=== PATIENT | male | born 1970 | race American Indian/Alaskan Native ===

== ENCOUNTER 2017-03-14 08:03 | Emergency (ER) | payer BC ==
[2017-03-14 08:08] VITALS: BP 132/82; PULSE 85; TEMP 97; O2SAT 100; BMI 32.4
--- NOTE | 2017-03-14 08:59 | ED PDOC ---
HPI: Eye Injury/Pain Time Seen by Provider: 03/14/17 08:10 Chief Complaint (Nursing): Eye Problem Chief Complaint (Provider): eyelid pain History Per: Patient History/Exam Limitations: no limitations Additional Complaint(s): 46yo male comes to the ED with left eyelid pain for 3 days. States at onset he bought lubricant eye ointment from [facility] which he has been using but this has not helped. Denies getting foreign object in the eye. Denies changes in vision, eye discharge, trauma or any other complaints. Past Medical History Vital Signs: Last Vital Signs Temp 97 F L 03/14/17 08:07 Pulse 85 03/14/17 08:07 Resp BP 132/82 03/14/17 08:07 Pulse Ox 100 03/14/17 08:07 - Medical History PMH: Diabetes, HTN, Hypercholesterolemia, Hyperlipidemia - Family History Family History: States: Diabetes - Home Medications Home Medications: Ambulatory Orders Medication Instructions Recorded Naproxen [Naprosyn] 500 mg PO BID PRN #15 tablet 08/24/16 Sulfamethoxazole/Trimethoprim 1 tab PO BID #14 tab 08/24/16 [Bactrim DS 800 mg-160 mg] - Allergies Allergies/Adverse Reactions: Allergies Allergy/AdvReac Type Severity Reaction Status Date / Time Penicillins Allergy RASH Verified 03/14/17 08:20 Review of Systems Eyes: Positive for: Eyelid Inflammation, Other (eyelid pain). Negative for: Pain, Vision Change Physical Exam - Reviewed Nursing Documentation Reviewed: Yes Vital Signs Reviewed: Yes - Physical Exam Appears: Positive for: Well, Non-toxic, No Acute Distress Head Exam: Positive for: ATRAUMATIC, NORMAL INSPECTION, NORMOCEPHALIC Skin: Positive for: Warm, Dry Eye Exam: Positive for: Other (hordeolum of the left lower eyelid) - ECG O2 Sat by Pulse Oximetry: 100 Medical Decision Making Medical Decision Makin explained to the patient that he has an infection of the eyelid, not an infection in the eye itself. instructed need for warm compresses and he needs to follow up with an specialty molder as an outpatient. Disposition - Clinical Impression Clinical Impression: Hordeolum - Patient ED Disposition Is Patient to be Admitted: No Counseled Patient/Family Regarding: Studies Performed, Diagnosis, Need For Followup - Disposition Referrals: Judson Blas MD [Staff Provider] - Disposition: Routine/Home Disposition Time: 10:00 Condition: IMPROVED Additional Instructions: follow up with opthalmologist in 1-2 days return to the ED with any worsening or concerning symptoms. use warm compresses multiple times a day for relief. Instructions: Tha (ED) Additional Comments - Additional Comments Additional Comments: Scribe Attestation: Documented by Yvan Multani acting as a scribe for Graciela Nagel MD. Provider Scribe Attestation: All medical record entries made by the Scribe were at my direction and personally dictated by me. I have reviewed the chart and agree that the record accurately reflects my personal performance of the history, physical exam, medical decision making, and the department course for this patient. I have also personally directed, reviewed, and agree with the discharge instructions and disposition.
== END 2017-03-14 09:33 | disposition home or self-care (01) ==
LOC: H.ER 08:03
DX: H00.014 Hordeolum externum left upper eyelid (principal); E11.9 Type 2 diabetes mellitus without complications; E78.00 Pure hypercholesterolemia, unspecified; I10 Essential (primary) hypertension; Z88.0 Allergy status to penicillin

== ENCOUNTER 2018-12-26 20:03 | Emergency (ER) | payer BC ==
[2018-12-26 20:03] VITALS: BMI 32.4
[2018-12-26 20:25] VITALS: BP 152/82; PULSE 89; RESP 16; TEMP 98.2; O2SAT 97
--- NOTE | 2018-12-26 21:04 | ED PDOC ---
Upper Extremity Pain/Injury Time Seen by Provider: 12/26/18 20:27 Chief Complaint (Nursing): Upper Extremity Problem/Injury Chief Complaint (Provider): Shoulder/Neck Pain History Per: Patient History/Exam Limitations: no limitations Onset/Duration Of Symptoms: Days (2x) Current Symptoms Are (Timing): Still Present Additional Complaint(s): 48 year old male with a past medical history of type 2 diabetes, hypertension, and hypercholesterolemia presents to the ED for an evaluation of left sided neck pain which radiates to his left shoulder ongoing for 2x days. 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 Patient states that his symptoms worsen when he tries to lift his left arm or move it. Patient denies any falls or trauma to the affected area. Patient states that he did have left rotator cuff surgery 15x years ago. Patient reports taking nabumetone 750 mg, which he was prescribed by an orthopedic surgeon previously, 2x hours prior to arrival with mild relief. No other complaints; denies loss of sensation. PMD: [facility] Past Medical History Reviewed: Historical Data, Nursing Documentation, Vital Signs Vital Signs: Last Vital Signs Temp 98.2 F 12/26/18 20:20 Pulse 89 12/26/18 20:20 Resp 16 12/26/18 20:20 BP 152/82 H 12/26/18 20:20 Pulse Ox 97 12/26/18 20:20 MOHIT Report Viewed: Yes - Medical History PMH: Diabetes (type 2), HTN, Hypercholesterolemia, Hyperlipidemia - Surgical History Surgical History: Hernia Repair Other surgeries: left rotator cuff surgery in 2003 - Family History Family History: States: Diabetes - Social History Current smoker - smoking cessation education provided: No Alcohol: None Drugs: Denies - Home Medications Home Medications: Ambulatory Orders Medication Instructions Recorded Naproxen [Naprosyn] 500 mg PO BID PRN #15 tablet 08/24/16 Sulfamethoxazole/Trimethoprim 1 tab PO BID #14 tab 08/24/16 [Bactrim DS 800 mg-160 mg] Acetaminophen [Acetaminophen 8 650 mg PO Q8 PRN #21 tablet.er 12/26/18 Hour] Cyclobenzaprine [Cyclobenzaprine 10 mg PO Q8 PRN #12 tab 12/26/18 HCl] Lidocaine 5% [Lidoderm] 1 ea TOP Q12 PRN #10 patch 12/26/18 Ketorolac Tromethamine [Toradol] 10 mg PO BID #20 tab 12/27/18 - Allergies Allergies/Adverse Reactions: Allergies Allergy/AdvReac Type Severity Reaction Status Date / Time Penicillins Allergy RASH Verified 12/26/18 20:20 Review of Systems ROS Statement: Except As Marked, All Systems Reviewed And Found Negative Musculoskeletal: Positive for: Neck Pain (left sided), Shoulder Pain (left) Physical Exam - Reviewed Nursing Documentation Reviewed: Yes Vital Signs Reviewed: Yes - Physical Exam Comments: GENERAL APPEARANCE: Patient is awake, alert, oriented x3, resting comfortably in no acute distress. SKIN: Warm, dry; (-) cyanosis. EYES: (-) conjunctival injection ENMT: Mucous membranes moist. Airway patent, (-) stridor. NECK: Supple, FROM (+) left paracervical tenderness, (+) left trapezius tenderness with spasm (-) rigidity (-) lymphadenopathy. CHEST AND RESPIRATORY: (-) rales, (-) rhonchi, (-) wheezes; breath sounds equal bilaterally. Respirations even and nonlabored. HEART AND CARDIOVASCULAR: (-) irregularity BACK: (-) midline tenderness (-) deformity. EXTREMITIES: FROM throughout (-) deformity. Distal pulses good bilaterally. NEURO AND PSYCH: Mental status as above. Gait: steady. Speech: clear. (-) facial asymmetry. Sensation intact throughout. Inventory Control Planner strength equal. - ECG O2 Sat by Pulse Oximetry: 97 (RA) Pulse Ox Interpretation: Normal Medical Decision Making Medical Decision Makin:30 Clinical impression: 48 year old male with acute shoulder and neck pain; muscle spasm. Initial plan: * flexeril 10 mg PO ( not driving home) * tylenol 650 mg PO * reevaluation 2144 On re-evaluation, patient reports improvement of symptoms however requesting Lidocaine patch. Lidoderm patch ordered. On exam, patient remains AAOx3, in no acute distress. Vitals stable. ROM exercises and use of heat therapy encouraged. Lab/Diagnostic results d/w the patient in great detail. Diagnosis of acute shoulder and neck pain, muscle spasm d/w the patient. Based on history, exam and diagnostic results, plan will be for outpatient follow up with PMD/ortho. Patient instructed to follow-up with pmd / referral provided / the clinic in 1- 2 days without fail. Advised to take medication as prescribed. Return to the emergency room at any time for any new or worsening symptoms. Patient states he fully agrees with and understands discharge instructions. States that he agrees with the plan and disposition. Verbalized and repeated discharge instructions and plan. I have given the patient opportunity to ask any additional questions. ScribeAttestation: Documented byDanielle Blandon, acting as a scribe for Danielle Richard Provider ScribeAttestation: All medical record entries made by the Scribe were at my direction and personally dictated by me. I have reviewed the chart and agree that the record accurately reflects my personal performance of the history, physical exam, medical decision making, and the department course for this patient. I have also personally directed, reviewed, and agree with the discharge instructions and disposition. Disposition - Clinical Impression Clinical Impression: Acute neck pain, Acute shoulder pain, Muscle spasm of shoulder region - Patient ED Disposition Is Patient to be Admitted: No Counseled Patient/Family Regarding: Studies Performed, Diagnosis, Need For Followup, Rx Given - Disposition Referrals: primary, doctor [Other] Cheri Lion MD [Staff Provider] - [facility] [Outside] Disposition: Routine/Home Disposition Time: 21:45 Condition: STABLE Additional Instructions: CONTINUE PRESVIOUSLY PRESCRIBED NSAIDS IN ADDITION TO TODAY'S PRESCRIBED MEDICATION. The emergency medical care you received today was directed at your acute symptoms. If you were prescribed any medication, please fill it and take as directed. It may take several days for your symptoms to resolve. Return to the Emergency Department if your symptoms worsen, do not improve, or if you have any other problems. Please contact your doctor in 2 days for re-evaluation and follow up / or call one of the physicians/clinics you have been referred to that are listed on the Patient Visit Information form that is included in your discharge packet. Bring any paperwork you were given at discharge with you along with any medications you are taking to your follow up visit. Our treatment cannot replace ongoing medical care by a primary care provider (PCP) outside of the emergency department. Prescriptions: Acetaminophen [Acetaminophen 8 Hour] 650 mg PO Q8 PRN #21 tablet.er PRN Reason: Pain, Moderate (4-7) Cyclobenzaprine [Cyclobenzaprine HCl] 10 mg PO Q8 PRN #12 tab PRN Reason: Muscle Spasm Lidocaine 5% [Lidoderm] 1 ea TOP Q12 PRN #10 patch PRN Reason: Pain, Moderate (4-7) Instructions: Muscle Spasms (DC), Generalized Neck Pain (DC), Shoulder Pain (DC) Forms: [facility] (K[place]i) Print Language: MOROCCAN - POA Present On Arrival: None
[2018-12-26] MEDS ORDERED: Lidocaine 5% Patch TD STA (21:30)
== END 2018-12-26 22:38 | disposition home or self-care (01) ==
LOC: H.ER 20:03
DX: M54.2 Cervicalgia (principal); M62.838 Other muscle spasm; E11.9 Type 2 diabetes mellitus without complications; I10 Essential (primary) hypertension; Z88.0 Allergy status to penicillin

== ENCOUNTER 2018-12-27 04:44 | Emergency (ER) | payer BC ==
[2018-12-27 04:44] VITALS: BMI 32.4
[2018-12-27 05:12] VITALS: TEMP 97.5; O2SAT 98
--- NOTE | 2018-12-27 07:26 | ED PDOC ---
HPI: General Adult Time Seen by Provider: 12/27/18 05:32 Chief Complaint (Nursing): Back Pain Chief Complaint (Provider): Shoulder Pain History Per: Patient History/Exam Limitations: no limitations Onset/Duration Of Symptoms: Days Current Symptoms Are (Timing): Still Present Additional Complaint(s): 48 year old male with a past medical history of hypertension, hyperch olesterolemia, and diabetes who is returning to the ED for left shoulder pain. Patient states that he was in the ED yesterday for the same pain that starts in left side of neck and radiates down arm. He reports difficulty raising arm above his head and denies any history of trauma. Of note, patient states that he has not taken any anti-inflammatory drugs and denies any chest pain or shortness of breath. PMD: [facility] Past Medical History Reviewed: Historical Data, Nursing Documentation, Vital Signs Vital Signs: Last Vital Signs Temp 97.5 F L 12/27/18 05:09 Pulse 110 H 12/27/18 05:09 Resp 16 12/27/18 05:09 BP 130/87 12/27/18 05:09 Pulse Ox 98 12/27/18 05:09 - Medical History PMH: Diabetes (type 2), HTN, Hypercholesterolemia, Hyperlipidemia - Surgical History Surgical History: Hernia Repair - Family History Family History: States: Diabetes - Social History Current smoker - smoking cessation education provided: No Alcohol: None Drugs: Denies - Home Medications Home Medications: Ambulatory Orders Medication Instructions Recorded Naproxen [Naprosyn] 500 mg PO BID PRN #15 tablet 08/24/16 Sulfamethoxazole/Trimethoprim 1 tab PO BID #14 tab 08/24/16 [Bactrim DS 800 mg-160 mg] Acetaminophen [Acetaminophen 8 650 mg PO Q8 PRN #21 tablet.er 12/26/18 Hour] Cyclobenzaprine [Cyclobenzaprine 10 mg PO Q8 PRN #12 tab 12/26/18 HCl] Lidocaine 5% [Lidoderm] 1 ea TOP Q12 PRN #10 patch 12/26/18 Ketorolac Tromethamine [Toradol] 10 mg PO BID #20 tab 12/27/18 - Allergies Allergies/Adverse Reactions: Allergies Allergy/AdvReac Type Severity Reaction Status Date / Time Penicillins Allergy RASH Verified 12/26/18 20:20 Review of Systems ROS Statement: Except As Marked, All Systems Reviewed And Found Negative Cardiovascular: Negative for: Chest Pain Respiratory: Negative for: Shortness of Breath Musculoskeletal: Positive for: Neck Pain, Shoulder Pain, Arm Pain Physical Exam - Reviewed Nursing Documentation Reviewed: Yes Vital Signs Reviewed: Yes - Physical Exam Appears: Positive for: Non-toxic, No Acute Distress Head Exam: Positive for: ATRAUMATIC, NORMAL INSPECTION, NORMOCEPHALIC Skin: Positive for: Normal Color, Warm, DRY Eye Exam: Positive for: Normal appearance Neck: Positive for: Normal, Painless ROM, Supple Cardiovascular/Chest: Positive for: Regular Rate, Rhythm. Negative for: Murmur Respiratory: Positive for: Normal Breath Sounds. Negative for: Respiratory Distress Gastrointestinal/Abdominal: Positive for: Normal Exam, Soft. Negative for: Tenderness Back: Positive for: Normal Inspection. Negative for: L CVA Tenderness, R CVA Tenderness, Vertebral Tenderness Extremity: Positive for: Other (Tenderness to palpation of trapezius and deltoid with near full ROM of left shoulder ). Negative for: Pedal Edema, Deformity, Swelling Neurological/Psych: Positive for: Awake, Alert, Normal Tone, Oriented. Negative for: Motor/Sensory Deficits - ECG O2 Sat by Pulse Oximetry: 98 (RA) Pulse Ox Interpretation: Normal Medical Decision Making Medical Decision Making: Time: 5:51 Assessment: Muscle spasm Plan: --EKG and Chest x-ray show no acute pathology -- No concern for cardiac pathology or dissection of aorta or carotid --After Toradol patient is feeling better --He states that he has an appointment with his orthopedic surgeon tomorrow --Very well appearing upon discharge Scribe Attestation: Documented by Joyce Garcia, acting as a scribe for Cleveland Grossman MD. Provider Scribe Attestation: All medical record entries made by the Scribe were at my direction and personally dictated by me. I have reviewed the chart and agree that the record accurately reflects my personal performance of the history, physical exam, medical decision making, and the department course for this patient. I have also personally directed, reviewed, and agree with the discharge instructions and disposition. Disposition - Clinical Impression Clinical Impression: Muscle spasm of shoulder region - Patient ED Disposition Is Patient to be Admitted: No Counseled Patient/Family Regarding: Studies Performed, Diagnosis, Need For Followup, Rx Given - Disposition Disposition: Routine/Home Disposition Time: 07:00 Condition: IMPROVED Prescriptions: Ketorolac Tromethamine [Toradol] 10 mg PO BID #20 tab Instructions: Muscle Spasms (DC) Forms: [email or web address] [facility] ([place]an)
[2018-12-27 07:53] VITALS: BP 128/86; PULSE 90; RESP 18
[2018-12-27 07:53] LABS: URINE BILIRUBIN NEGATIVE (NEGATIVE); URINE BLOOD NEGATIVE (NEGATIVE); URINE CLARITY CLEAR (Clear); URINE COLOR YELLOW (YELLOW); URINE GLUCOSE (UA) >=500 mg/dL (NEGATIVE); URINE LEUKOCYTE ESTERASE NEG Leu/uL (Negative); URINE PROTEIN NEGATIVE (NEGATIVE); URINE UROBILINOGEN 0.2-1.0 mg/dL (0.2-1.0)
--- NOTE | 2018-12-27 15:46 | RAD ---
Date of service: 12/27/2018 PROCEDURE: Radiographs of the Left Shoulder HISTORY: Shoulder pain COMPARISON: No prior study available for comparison FINDINGS: BONES: No evidence of acute displaced fracture nor dislocation. Two metallic threaded fixation tacks are seen overlying the left humeral head consistent with prior rotator cuff injury repair. There is widening of the left acromioclavicular joint with secondary degenerative osteoarthritis as well. JOINTS: Mild degenerative osteoarthritis left acromioclavicular and to a lesser degree glenohumeral joints. SOFT TISSUES: Normal. OTHER FINDINGS: None. IMPRESSION: No evidence of acute displaced fracture nor dislocation. Postoperative changes left shoulder. Widening left AC joint. Mild degenerative osteoarthritis.
--- NOTE | 2018-12-27 15:47 | RAD ---
Date of service: 12/27/2018 HISTORY: Shoulder pain COMPARISON: Comparison made with chest radiograph dated 07/06/2014 FINDINGS: LUNGS: Minor bibasilar atelectasis and or scarring. There appears to be some minor left apical pleural thickening as well. PLEURA: No significant pleural effusion identified, no pneumothorax apparent. CARDIOVASCULAR: No aortic atherosclerotic calcification present. Normal cardiac size. No pulmonary vascular congestion. OSSEOUS STRUCTURES: No significant abnormalities. VISUALIZED UPPER ABDOMEN: Normal. OTHER FINDINGS: None. IMPRESSION: Minor bibasilar atelectasis and or scarring.
== END 2018-12-27 07:45 | disposition home or self-care (01) ==
LOC: H.ER 04:44
DX: M62.838 Other muscle spasm (principal); E11.9 Type 2 diabetes mellitus without complications; E78.00 Pure hypercholesterolemia, unspecified; I10 Essential (primary) hypertension; Z88.0 Allergy status to penicillin
CPT/HCPCS: 71045; 73030; 81003; 82948; 96372; 99284; J1885

== ENCOUNTER 2019-01-08 14:14 | Emergency (ER) | payer BC ==
[2019-01-08 14:14] VITALS: BMI 32.4
[2019-01-08 14:44] VITALS: RESP 20
--- NOTE | 2019-01-08 16:30 | ED PDOC ---
Upper Extremity Pain/Injury Time Seen by Provider: 01/08/19 16:20 Chief Complaint (Nursing): Upper Extremity Problem/Injury Chief Complaint (Provider): Left shoulder pain History Per: Patient History/Exam Limitations: no limitations Onset/Duration Of Symptoms: Days, Persistent Current Symptoms Are (Timing): Still Present Quality: "Pain" Exacerbating Factor(s): Strenuous Use Of Affected Area Additional History Per: Patient Additional Complaint(s): 48yo male, right hand dominant, comes to ER with complaints of left shoulder pain, present for the past 10-15 days. Patient states he has a history of rotator cuff surgery on that shoulder as well. He reports transient relief with medication. he reports being seen in the ER twice for this, getting medications that helped but he has been out of them now. He reports pain is worse in the morning as it is more stiff and gets better through out the day. Denies any new trauma, injury, weakness, numbness or tingling in his arm. He also denies any chest pain, shortness of breath or other complaints. Patient states he drives a lot for work and also reports work that requires a lot of repetitive motion. No additional complaints. PMD: None provided Past Medical History Reviewed: Historical Data, Nursing Documentation, Vital Signs Vital Signs: Last Vital Signs Temp 98 F 01/08/19 14:39 Pulse 116 H 01/08/19 14:39 Resp 20 01/08/19 14:39 BP 150/89 01/08/19 14:39 Pulse Ox 97 01/08/19 14:39 - Medical History PMH: Diabetes (type 2), HTN, Hypercholesterolemia, Hyperlipidemia - Surgical History Surgical History: Hernia Repair Other surgeries: left rotator cuff repair - Family History Family History: States: Diabetes - Social History Current smoker - smoking cessation education provided: No Alcohol: None Drugs: Denies - Home Medications Home Medications: Ambulatory Orders Medication Instructions Recorded Naproxen [Naprosyn] 500 mg PO BID PRN #15 tablet 08/24/16 Sulfamethoxazole/Trimethoprim 1 tab PO BID #14 tab 08/24/16 [Bactrim DS 800 mg-160 mg] Acetaminophen [Acetaminophen 8 650 mg PO Q8 PRN #21 tablet.er 12/26/18 Hour] Cyclobenzaprine [Cyclobenzaprine 10 mg PO Q8 PRN #12 tab 12/26/18 HCl] Lidocaine 5% [Lidoderm] 1 ea TOP Q12 PRN #10 patch 12/26/18 Ketorolac Tromethamine [Toradol] 10 mg PO BID #20 tab 12/27/18 Cyclobenzaprine [Cyclobenzaprine 10 mg PO TID PRN #8 tab 01/08/19 HCl] Naproxen 500 mg PO BID PRN #20 tab 01/08/19 - Allergies Allergies/Adverse Reactions: Allergies Allergy/AdvReac Type Severity Reaction Status Date / Time Penicillins Allergy RASH Verified 01/08/19 14:39 Review of Systems ROS Statement: Except As Marked, All Systems Reviewed And Found Negative Constitutional: Negative for: Fever, Chills Cardiovascular: Negative for: Chest Pain, Palpitations Respiratory: Negative for: Shortness of Breath Musculoskeletal: Positive for: Shoulder Pain (left), Arm Pain (left). Negative for: Neck Pain Neurological: Negative for: Weakness, Numbness Physical Exam - Reviewed Nursing Documentation Reviewed: Yes Vital Signs Reviewed: Yes - Physical Exam Comments: GENERAL APPEARANCE: Patient is awake, alert, oriented x 3, in no acute distress. SKIN: Warm, dry; (-) cyanosis. CHEST AND RESPIRATORY: (-) chest wall tenderness. Lungs: (-) rales, (-) rhonchi, (-) wheezes; breath sounds equal bilaterally. HEART AND CARDIOVASCULAR: (-) irregularity; (-) murmur, (-) gallop. EXTREMITY: (+) Tenderness to left anterior shoulder (-) swelling, (-) ecchymosis (+) surgical scar noted to left shoulder. (-) deformity. (-) distal neurovascular deficit. Elbow, hand and digits: (-) tenderness, full ROM. NEURO AND PSYCH: Mental status as above. - ECG O2 Sat by Pulse Oximetry: 97 (RA) Pulse Ox Interpretation: Normal Medical Decision Making Medical Decision Making: Left shoulder pain Plan: -- Flexeril 10mg PO -- Toradol 30mg IM Prior visits reviewed (12/26 and 12/27) CXR FINDINGS: LUNGS: Minor bibasilar atelectasis and or scarring. There appears to be some minor left apical pleural thickening as well. PLEURA: No significant pleural effusion identified, no pneumothorax apparent. CARDIOVASCULAR: No aortic atherosclerotic calcification present. Normal cardiac size. No pulmonary vascular congestion. OSSEOUS STRUCTURES: No significant abnormalities. VISUALIZED UPPER ABDOMEN: Normal. OTHER FINDINGS: None. IMPRESSION: Minor bibasilar atelectasis and or scarring. Left Shoulder XR FINDINGS: BONES: No evidence of acute displaced fracture nor dislocation. Two metallic threaded fixation tacks are seen overlying the left humeral head consistent with prior rotator cuff injury repair. There is widening of the left acromioclavicular joint with secondary degenerative osteoarthritis as well. JOINTS: Mild degenerative osteoarthritis left acromioclavicular and to a lesser degree glenohumeral joints. SOFT TISSUES: Normal. OTHER FINDINGS: None. IMPRESSION: No evidence of acute displaced fracture nor dislocation. Postoperative changes left shoulder. Widening left AC joint. Mild degenerative osteoarthritis. EKG reviewed, no acute findings. 1804 On reassessment, patient reports he feels improvement in pain. Sling provided. Discussed finding of AC joint widening on Xray. Patient prescribed Naproxen and Flexeril, informed to take as prescribed. Patient's fiancee is in ER and will be driving him home. Informed to follow up with orthopedist without fail. Discussed results, diagnosis, treatment, return precautions and f/u with pt who is understanding, in agreemnt and stable for dc Scribe Attestation: Documented by Zuleika Orellana, acting as a scribe for DYLAN Quispe. Provider Scribe Attestation: All medical record entries made by the Scribe were at my direction and personally dictated by me. I have reviewed the chart and agree that the record accurately reflects my personal performance of the history, physical exam, medical decision making, and the department course for this patient. I have also personally directed, reviewed, and agree with the discharge instructions and disposition. Disposition - Clinical Impression Clinical Impression: Shoulder pain, Disorder of ligament, left shoulder - Patient ED Disposition Is Patient to be Admitted: No Counseled Patient/Family Regarding: Studies Performed, Diagnosis, Need For Followup, Rx Given - Disposition Referrals: [facility] [Outside] Rc Garrett III, MD [Staff Provider] - Disposition: Routine/Home Disposition Time: 18:05 Condition: IMPROVED Additional Instructions: Return to ED for new or worsening symptoms, fever >100.4, numbness or tingling, changes in skin color, chest pain. Follow up with an orthopedist in 3-5 days. Wear sling for support. Rest, ice and elevate. Take medications as prescribed. Do not drive or drink alcohol when taking flexeril Prescriptions: Cyclobenzaprine [Cyclobenzaprine HCl] 10 mg PO TID PRN #8 tab PRN Reason: Muscle Spasm Naproxen 500 mg PO BID PRN #20 tab PRN Reason: Pain, Moderate (4-7) Instructions: Shoulder Sprain, Shoulder Pain (DC) Forms: [employer] (Citizen [place]), [facility] ED School/Work Excuse Print Language: AZERI - POA Present On Arrival: None
[2019-01-08 18:14] VITALS: BP 120/78; PULSE 78; TEMP 97
[2019-01-09 00:07] VITALS: O2SAT 97
== END 2019-01-08 18:15 | disposition home or self-care (01) ==
LOC: H.ER 14:14
DX: M25.512 Pain in left shoulder (principal); E11.9 Type 2 diabetes mellitus without complications; E78.00 Pure hypercholesterolemia, unspecified; I10 Essential (primary) hypertension; Z88.0 Allergy status to penicillin
CPT/HCPCS: 96372; 99283; J1885